=== PATIENT | male | born 1950 | race Two or more races ===

== ENCOUNTER 2023-11-08 09:33 | Day surgery (SDC) | payer MEDICARE, BC ==
[2023-11-07 09:29] LABS: BASOPHILS # (AUTO) 0.1 X10'3 (0-0.2); BASOPHILS % (AUTO) 0.8 % (0-1); EOSINOPHILS # (AUTO) 0.3 X10'3 (0-0.9); EOSINOPHILS % (AUTO) 3.6 % (0-6); HEMATOCRIT 47.5 % (42.0-52.0); HEMOGLOBIN 15.9 g/dl (14.0-17.9); LYMPHOCYTES # (AUTO) 1.3 X10'3 (1.1-4.8); LYMPHOCYTES % (AUTO) 16.6 % (21-51); MEAN CORPUSCULAR HEMOGLOBIN 29.6 PG (27.0-31.0); MEAN CORPUSCULAR HGB CONC 33.6 g/dL (33.0-36.5); MEAN CORPUSCULAR VOLUME 88.2 FL (78-98); MEAN PLATELET VOLUME 9.5 FL (7.4-10.4); MONOCYTES # (AUTO) 0.4 X10'3 (0-0.9); MONOCYTES % (AUTO) 5.6 % (2-12); NEUTROPHILS # (AUTO) 5.7 X10'3 (1.8-7.7); NEUTROPHILS % (AUTO) 73.4 % (42-75); PLATELET COUNT 175 X10'3 (140-440); RED BLOOD COUNT 5.38 X10'6 (4.70-6.10); RED CELL DISTRIBUTION WIDTH 14.5 % (11.5-14.5); WHITE BLOOD COUNT 7.8 X10'3 (4.5-11.0)
[2023-11-07 09:37] LABS: APTT 29 SECONDS (22-32); PROTHROMBIN TIME 10.6 SECONDS (9.0-12.0)
[2023-11-07 09:38] LABS: ALBUMIN 3.9 G/DL (3.4-5.0); ANION GAP 15 (8-16); BLOOD UREA NITROGEN 28 MG/DL (7-18); BUN/CREATININE RATIO 31.5 (10.0-20.0); CALCIUM 9.4 MG/DL (8.5-10.1); CHLORIDE 102 MMOL/L (99-107); CHOL/HDL RATIO 1.7 (0.00-4.99); CHOLESTEROL 72 MG/DL (0-200); CREATININE 0.89 MG/DL (0.60-1.10); GLUCOSE 166 MG/DL (70-104); HDL CHOLESTEROL 43 MG/DL (35-60); LDL CHOLESTEROL 17 MG/DL (50-100); POTASSIUM 4.1 MMOL/L (3.5-5.1); SODIUM 144 MMOL/L (135-145); TOTAL CARBON DIOXIDE 26.6 MMOL/L (24-32); TRIGLYCERIDES 144 MG/DL (20-135); eGFR 84 ML/MIN
[~2023-11-08] VITALS: Ht 175.3 cm; Wt 94.2 kg
[2023-11-08] VITALS (10 sets, daily range): BP systolic 100–127; BP diastolic 50–76; PULSE 64–68; RESP 12–16; TEMP 98.1; O2SAT 93–97
[~2023-11-08 09:33] MED LIST: AMLO10TA13 PO; EMPA25TA PO; EVOL140P3 SQ; FURO20TA4 PO; GLIM4TAB7 PO; ICOS1CAP PO; LOSA1TAB39 PO; METF-438 PO
[2023-11-08] MEDS ORDERED: CARV25TA PO (10:05)
[2023-11-08] MEDS ORDERED: PRED20TA PO (10:05)
[2023-11-08] MEDS ORDERED: INSU100I31 SQ (10:07)
[2023-11-08] MEDS ORDERED: ASPI-1265 PO (10:09)
[2023-11-08] MEDS ORDERED: ATOR-2 PO (10:10)
[2023-11-08] MEDS ORDERED: verapamil 2.5 mg/ml inj IV ONE (11:47)
[2023-11-08] MEDS ORDERED: LIDOcaine 1% (10mg/ml) 2ml vial ONE ×2 (11:47→12:20)
[2023-11-08] MEDS ORDERED: heparin 1,000unit/ml 10ml vial 10 ML ONE (11:47)
[2023-11-08] MEDS ORDERED: iohexol 350MG/ML 100ml bottle IV ONE (11:48)
[2023-11-08] MEDS ORDERED: nitroGLYCERIN 500mcg/5mL D5W 5 ML IV ONE (11:49)
[2023-11-08] MEDS ORDERED: midazolam 1 mg/ML 2ml injection ONE (11:50)
[2023-11-08] MEDS ORDERED: fentaNYL/PF 50MCG/1 ML 2ML syringe ONE (11:50)
[2023-11-08] MEDS: LORazepam 0.5 MG tablet PO PRN (12:06)
[2023-11-08] MEDS: diphenhydrAMINE 25mg capsule PO PRN (12:06)
[2023-11-08] MEDS: normal saline 1,000 ML IV SCH (12:06)
[2023-11-08] MEDS ORDERED: HYDROcodone/acetaminophen 10/325mg tab PO PRN (13:50)
[2023-11-08] MEDS ORDERED: HYDROcodone/acetaminophen 5mg/325mg tablet PO PRN (13:50)
[2023-11-09 06:30] LABS: ISTAT HGB MIX 13.9 g/dl (14.0-17.9); ISTAT Hct MIX 41 %PCV (42-52); ISTAT O2 SATURATION MIX VENOUS 92 % (60-80); ISTAT SOURCE BLNK
[2023-11-09 06:30] LABS: ISTAT HGB MIX 14.3 g/dl (14.0-17.9); ISTAT Hct MIX 42 %PCV (42-52); ISTAT O2 SATURATION MIX VENOUS 61 % (60-80); ISTAT SOURCE VEN
== END 2023-11-08 15:30 | disposition home or self-care (01) ==
LOC: SSTAY O 09:33
PROVIDERS: ATTEND Student in an Organized Health Care Education/Training Program
DX: I35.0 Nonrheumatic aortic (valve) stenosis (principal); I10 Essential (primary) hypertension; E11.9 Type 2 diabetes mellitus without complications; E78.00 Pure hypercholesterolemia, unspecified; Z79.82 Long term (current) use of aspirin; Z79.84 Long term (current) use of oral hypoglycemic drugs; Z79.899 Other long term (current) drug therapy; Z88.0 Allergy status to penicillin; Z91.041 Radiographic dye allergy status
CPT/HCPCS: 36415; 80048; 80061; 85025; 85610; 85730; 93005; 93460; 99152; A6258; A6402; C1751; C1894; J1644; J2001; J2250; J3010; J3490; J7030; Q0163; Q9967; Z7610; 82803; 85014; 99153; A6449

== ENCOUNTER 2023-11-30 11:59 | Outpatient (CLI) | payer MEDICARE, BC ==
[~2023-11-30 11:59] MED LIST changes: +ASPI-1265 PO; +ATOR-2 PO; +CARV25TA PO; +INSU100I31 SQ; +IODIXANOL 320 MG/ML INFUS..BTL 100ML IV ONE; +PRED20TA PO
[2023-11-30 12:41] LABS: BASOPHILS # (AUTO) 0.1 X10'3 (0-0.2); BASOPHILS % (AUTO) 0.6 % (0-1); EOSINOPHILS % (AUTO) 0.4 % (0-6); HEMATOCRIT 45.9 % (42.0-52.0); HEMOGLOBIN 15.7 g/dl (14.0-17.9); LYMPHOCYTES # (AUTO) 0.7 X10'3 (1.1-4.8); LYMPHOCYTES % (AUTO) 8.7 % (21-51); MEAN CORPUSCULAR HEMOGLOBIN 29.7 PG (27.0-31.0); MEAN CORPUSCULAR HGB CONC 34.3 g/dL (33.0-36.5); MEAN CORPUSCULAR VOLUME 86.7 FL (78-98); MEAN PLATELET VOLUME 9.1 FL (7.4-10.4); MONOCYTES # (AUTO) 0.1 X10'3 (0-0.9); MONOCYTES % (AUTO) 1.7 % (2-12); NEUTROPHILS # (AUTO) 7.4 X10'3 (1.8-7.7); NEUTROPHILS % (AUTO) 88.6 % (42-75); PLATELET COUNT 162 X10'3 (140-440); RED BLOOD COUNT 5.29 X10'6 (4.70-6.10); RED CELL DISTRIBUTION WIDTH 14.4 % (11.5-14.5); WHITE BLOOD COUNT 8.4 X10'3 (4.5-11.0)
[2023-11-30 12:47] LABS: APTT 27 SECONDS (22-32); PROTHROMBIN TIME 10.4 SECONDS (9.0-12.0)
[2023-11-30 12:51] LABS: ALANINE AMINOTRANSFERASE 31 U/L (12-78); ALBUMIN 3.9 G/DL (3.4-5.0); ALKALINE PHOSPHATASE 96 IU/L (46-116); ANION GAP 8 (8-16); ASPARTATE AMINO TRANSFERASE 14 U/L (10-37); BILIRUBIN,TOTAL 0.7 MG/DL (0.1-1.0); BLOOD UREA NITROGEN 26 MG/DL (7-18); BUN/CREATININE RATIO 27.4 (10.0-20.0); CALCIUM 9.3 MG/DL (8.5-10.1); CHLORIDE 102 MMOL/L (99-107); CREATININE 0.95 MG/DL (0.60-1.10); GLUCOSE 245 MG/DL (70-104); POTASSIUM 4.2 MMOL/L (3.5-5.1); SODIUM 138 MMOL/L (135-145); TOTAL CARBON DIOXIDE 27.8 MMOL/L (24-32); TOTAL PROTEIN 7.8 G/DL (6.4-8.2); eGFR 78 ML/MIN
== END 2023-11-30 23:59 | disposition home or self-care (01) ==
LOC: RAD 11:59
PROVIDERS: ATTEND Internal Medicine Cardiovascular Disease
DX: K44.9 Diaphragmatic hernia without obstruction or gangrene (principal); K57.90 Diverticulosis of intestine, part unspecified, without perforation or abscess without bleeding; I35.0 Nonrheumatic aortic (valve) stenosis; I65.29 Occlusion and stenosis of unspecified carotid artery; M89.8X8 Other specified disorders of bone, other site; N32.89 Other specified disorders of bladder; R09.89 Other specified symptoms and signs involving the circulatory and respiratory systems; R06.02 Shortness of breath
CPT/HCPCS: 36415; 71046; 71275; 74174; 75572; 80053; 85025; 85610; 85730; Q9967

== ENCOUNTER 2024-04-05 06:21 | Inpatient (IN) | payer MEDICARE, BC ==
[2024-03-27 10:54] LABS: BILIRUBIN,URINE NEGATIVE (Neg); CLARITY,URINE CLEAR (Clear); COLOR,URINE YELLOW (Yellow); GLUCOSE, URINE >=1000 mg/dl (Neg); KETONES,URINE NEGATIVE (Neg); LEUKOCYTE ESTERASE ,URINE NEGATIVE (Neg); NITRITES, URINE NEGATIVE (Neg); OCCULT BLOOD,URINE NEGATIVE (Neg); PROTEIN,URINE TRACE mg/dl (Neg); UROBILINOGEN,URINE 0.2 E.U/dL (0.2-1.0)
[2024-03-27 10:58] LABS: BASOPHILS # (AUTO) 0.1 X10'3 (0-0.2); BASOPHILS % (AUTO) 1.3 % (0-1); EOSINOPHILS # (AUTO) 0.3 X10'3 (0-0.9); EOSINOPHILS % (AUTO) 4.3 % (0-6); LYMPHOCYTES # (AUTO) 1.5 X10'3 (1.1-4.8); LYMPHOCYTES % (AUTO) 21.3 % (21-51); MEAN CORPUSCULAR HEMOGLOBIN 29.7 PG (27.0-31.0); MEAN CORPUSCULAR HGB CONC 33.5 g/dL (33.0-36.5); MEAN CORPUSCULAR VOLUME 88.6 FL (78-98); MEAN PLATELET VOLUME 9.8 FL (7.4-10.4); MONOCYTES # (AUTO) 0.6 X10'3 (0-0.9); MONOCYTES % (AUTO) 8.5 % (2-12); NEUTROPHILS # (AUTO) 4.5 X10'3 (1.8-7.7); NEUTROPHILS % (AUTO) 64.6 % (42-75); PRE OP HEMATOCRIT 49.1 % (42.0-52.0); PRE OP HEMOGLOBIN 16.4 g/dL (14.0-17.9); PRE OP PLATELET COUNT 187 X10'3 (140-440); RED BLOOD COUNT 5.54 X10'6 (4.70-6.10); RED CELL DISTRIBUTION WIDTH 14.9 % (11.5-14.5); UA COLLECTION TYPE CLN CATCH MIDSTREAM
[2024-03-27 10:59] LABS: BACTERIA,URINE NONE SEEN /HPF (Neg); RBC,URINE 0-2 /HPF (0-2); SQUAMOUS EPITHELIAL CELL,UR FEW /LPF (FEW); WBC,URINE 0-4 /HPF (0-4)
[2024-03-27 11:05] LABS: HEMOGLOBIN A1C 7.8 % (4.5-6.2)
[2024-03-27 11:16] LABS: PRE OP PROTIME 10.3 SECONDS (9.0-12.0)
[2024-03-27 11:24] LABS: ALKALINE PHOSPHATASE 69 IU/L (46-116); BLOOD UREA NITROGEN 22 MG/DL (7-18); BUN/CREATININE RATIO 24.7 (10.0-20.0); CALCIUM 9.8 MG/DL (8.5-10.1); CREATININE 0.89 MG/DL (0.60-1.10); PRE OP ALT 29 U/L (30-65); PRE OP AST 18 U/L (10-37); PRE OP GLUCOSE 95 MG/DL (70-104); PRE OP SODIUM 142 MMOL/L (135-145); PRO BRAIN NATRIURETIC PEPTIDE 513 PG/ML (0-125); TOTAL CARBON DIOXIDE 28.3 MMOL/L (24-32); eGFR 84 ML/MIN
[2024-03-27 11:26] LABS: CHLORIDE 103 MMOL/L (99-107); PRE OP ANION GAP 11 (8-16)
[2024-04-05] VITALS (25 sets, daily range): BP systolic 122–168; BP diastolic 62–88; PULSE 60–71; RESP 10–20; TEMP 97.4–98.2; O2SAT 91–97
[~2024-04-05] VITALS: Ht 170.2 cm; Wt 98.7 kg
[~2024-04-05 06:21] MED LIST changes: -ICOS1CAP PO; +INSU100C10 SQ; -INSU100I31 SQ; -IODIXANOL 320 MG/ML INFUS..BTL 100ML IV ONE; +KRILL OIL PO; +MULT-1085 PO; -PRED20TA PO; +UBID300C3 PO; +nitroPRUSSIDE (NIPRIDE) (200MCG/ML) 100ML Drip IV SCH; +ondansetron/PF 4mg/2ml inj IV PRN; +phenylephrine inj 50 MG in normal saline 250ml IV solN IV SCH
[2024-04-05] MEDS ORDERED: protamine sulfate 10mg/ml inj. ONE (07:13)
[2024-04-05] MEDS ORDERED: LIDOcaine 1% (10mg/ml) 2ml vial ONE ×2 (07:18→07:48)
[2024-04-05] MEDS: famotidine 20mg tablet PO ONE (07:31)
[2024-04-05] MEDS: ringers solution, lacted 1,000 ML IV SCH ×2 (07:37→21:47)
[2024-04-05] MEDS: VANCOMYCIN 1,500MG inj. 1,500 MG in normal saline 500ml IV soln 300 ML IV ONE (07:37)
[2024-04-05] MEDS: aspirin 325mg tablet PO ONE (07:49)
[2024-04-05] MEDS ORDERED: morphine 2 MG/ML inj. syringe IV PRN (07:50)
[2024-04-05] MEDS ORDERED: ondansetron/PF 4mg/2ml inj IV PRN ×2 (07:50→09:35)
[2024-04-05] MEDS ORDERED: meperidine/PF 25mg/ml syringe IV PRN ×3 (07:50)
[2024-04-05] MEDS ORDERED: morphine 4 MG/ML inj SYRINge IV PRN (07:50)
[2024-04-05] MEDS ORDERED: labetalol 20mg/4ml (5mg/ml) syringe IV PRN ×2 (07:50→09:35)
[2024-04-05] MEDS ORDERED: proCHLORperazine 10 MG/2 ml inj IV PRN ×2 (07:50→09:35)
[2024-04-05] MEDS ORDERED: heparin 1,000 UNITS/NS 500ml 1,500 ML ONE (08:14)
[2024-04-05] MEDS ORDERED: iohexol 350MG/ML 100ml bottle IV ONE (08:14)
[2024-04-05] MEDS ORDERED: sevoflurane 250ml liquid IH ONE (08:22)
[2024-04-05] MEDS ORDERED: fentaNYL/PF 50MCG/1 ML 2ML syringe ONE (08:28)
[2024-04-05] MEDS ORDERED: midazolam 1 mg/ML 2ml injection ONE (08:28)
[2024-04-05] MEDS ORDERED: propofol inj 20 ML IV ONE (08:30)
[2024-04-05] MEDS ORDERED: heparin 1,000unit/ml 10ml vial 10 ML ONE (08:38)
[2024-04-05] MEDS ORDERED: ALPRAZolam 0.25mg tablet PO PRN (09:35)
[2024-04-05] MEDS ORDERED: potassium CL 10mEq/100ml bag 100 ML IV PRN (09:35)
[2024-04-05] MEDS ORDERED: HYDROcodone/acetaminophen 5mg/325mg tablet PO PRN (09:35)
[2024-04-05] MEDS ORDERED: glucagon, human recombinant 1mg kit SUBCUT PRN (09:35)
[2024-04-05] MEDS ORDERED: dextrose 50%-water 50ml dispensing syringe IV PRN ×2 (09:35)
[2024-04-05] MEDS ORDERED: potassium Cl 20 mEq SR tablet PO PRN (09:35)
[2024-04-05] MEDS ORDERED: magnesium sulf-water 4G/100mL 100 ML IV PRN (09:35)
[2024-04-05] MEDS ORDERED: docusate sod 100mg capsule PO PRN (09:35)
[2024-04-05] MEDS ORDERED: potassium Cl 40MEQ/270ML bag 250 ML IV PRN (09:35)
[2024-04-05] MEDS ORDERED: diphenhydrAMINE 25mg capsule PO PRN (09:35)
[2024-04-05] MEDS ORDERED: DEXTROSE 15 GM of carb/4 tabs (each vial/BOTTLE has 4 tablets) PO PRN ×2 (09:35)
[2024-04-05] MEDS ORDERED: hydrALAZINE 20mg/ml inj. IV PRN (09:35)
[2024-04-05] MEDS ORDERED: magnesium sulf-water 2g/50mL 50 ML IV PRN (09:35)
[2024-04-05] MEDS ORDERED: potassium Cl 40MEQ/1/2NS 520ml 520 ML IV PRN (09:35)
[2024-04-05] MEDS ORDERED: acetaminophen 325mg tablet PO PRN (09:35)
[2024-04-05] MEDS ORDERED: potassium Cl 20mEq/100mL bag 100 ML IV PRN (09:35)
[2024-04-05] MEDS ORDERED: pantoprazole 40mg Tablet.DR PO PRN (09:35)
[2024-04-05] MEDS: normal saline 1000ml 1,000 ML IV SCH (11:06)
[2024-04-05] MEDS ORDERED: INSULIN LISPRO 100 UNIT/ML INSULN.PEN MULTI-DOSE SQ SCH (12:00)
[2024-04-05] MEDS: INSULIN LISPRO 100 UNIT/ML INSULN.PEN MULTI-DOSE SQ SCH (13:53)
[2024-04-05] MEDS ORDERED: sod chloride 0.9% 10ml flush syringe IV SCH (16:00)
[2024-04-05] MEDS ORDERED: ceFAZolin 1GM/D5W- ADD-VANTAGE 50 ML IV SCH (16:00)
[2024-04-05] MEDS: DOCUMENT DATE & TIME OF BETA-BLOCKER PO ONE (21:46)
[2024-04-05] MEDS: carVEDilol 12.5mg tablet PO SCH (22:03)
[2024-04-05] MEDS: atorvastatin 20mg tablet PO SCH (22:04)
[2024-04-05] MEDS: VANCOMYCIN 1GM 200ML H20 (PEG) 200 ML IV SCH (23:18)
[2024-04-06 02:00] VITALS: BP 138/68; PULSE 62; RESP 10; TEMP 97.4; O2SAT 94
[2024-04-06 06:00] VITALS: BP 155/73; PULSE 62; RESP 19; TEMP 97; O2SAT 96
[2024-04-06] MEDS: amLODIPine 5mg tablet PO SCH (07:41)
[2024-04-06] MEDS: HYDROchlorothiazide 25mg tablet PO SCH (07:41)
[2024-04-06] MEDS: losartan 50mg tablet PO SCH (07:41)
[2024-04-06] MEDS: aspirin 81mg tab.chew PO SCH (07:41)
[2024-04-06] MEDS: multivitamins, therapeutics tablet PO SCH (07:41)
[2024-04-06 07:42] LABS: BASOPHILS # (AUTO) 0.1 X10'3 (0-0.2); BASOPHILS % (AUTO) 0.7 % (0-1); EOSINOPHILS # (AUTO) 0.1 X10'3 (0-0.9); EOSINOPHILS % (AUTO) 1.6 % (0-6); HEMATOCRIT 40.9 % (42.0-52.0); HEMOGLOBIN 13.9 g/dl (14.0-17.9); LYMPHOCYTES # (AUTO) 1.3 X10'3 (1.1-4.8); LYMPHOCYTES % (AUTO) 15.6 % (21-51); MEAN CORPUSCULAR HEMOGLOBIN 29.8 PG (27.0-31.0); MEAN CORPUSCULAR VOLUME 87.5 FL (78-98); MONOCYTES # (AUTO) 0.9 X10'3 (0-0.9); MONOCYTES % (AUTO) 10.3 % (2-12); NEUTROPHILS % (AUTO) 71.8 % (42-75); PLATELET COUNT 124 X10'3 (140-440); RED BLOOD COUNT 4.67 X10'6 (4.70-6.10); RED CELL DISTRIBUTION WIDTH 14.9 % (11.5-14.5); WHITE BLOOD COUNT 8.3 X10'3 (4.5-11.0)
[2024-04-06 08:00] VITALS: RESP 19; O2SAT 96
[2024-04-06] MEDS ORDERED: non-formulary drug (Losartan/Hydrochlorothiazide (Losartan-Hctz 100-25 Mg Tab) 1 TAB) PO SCH (08:00)
[2024-04-06] MEDS ORDERED: [UNRECOGNIZED DRUG - OTHER] PO SCH (08:00)
[2024-04-06] MEDS ORDERED: aspirin 81mg tab.chew PO SCH (08:00)
[2024-04-06] MEDS ORDERED: non-formulary drug (Ubidecarenone (Co Q-10) 1 CAP) PO SCH (08:00)
[2024-04-06 08:17] LABS: ALANINE AMINOTRANSFERASE 19 U/L (12-78); ALBUMIN 3.4 G/DL (3.4-5.0); ALKALINE PHOSPHATASE 69 IU/L (46-116); ANION GAP 8 (8-16); ASPARTATE AMINO TRANSFERASE 19 U/L (10-37); BILIRUBIN,TOTAL 1.1 MG/DL (0.1-1.0); BLOOD UREA NITROGEN 21 MG/DL (7-18); BUN/CREATININE RATIO 25.3 (10.0-20.0); CALCIUM 8.5 MG/DL (8.5-10.1); CHLORIDE 105 MMOL/L (99-107); CREATININE 0.83 MG/DL (0.60-1.10); GLUCOSE 162 MG/DL (70-104); MAGNESIUM 1.9 MG/DL (1.5-2.4); POTASSIUM 3.9 MMOL/L (3.5-5.1); PRO BRAIN NATRIURETIC PEPTIDE 694 PG/ML (0-125); SODIUM 142 MMOL/L (135-145); TOTAL CARBON DIOXIDE 28.8 MMOL/L (24-32); TOTAL PROTEIN 6.9 G/DL (6.4-8.2); eCRCL 74 ML/MIN; eGFR > 90 ML/MIN
[2024-04-06 11:00] VITALS: BP 127/55; PULSE 65; RESP 15; TEMP 98.4; O2SAT 95
== END 2024-04-06 12:27 | disposition home or self-care (01) | DRG 266 ==
LOC: UNDOADMIN 06:21 → PAS IN 06:21 → PACU 11:31 → PCU 3S 19:00 → UNDODISIN 04-06 12:27
PROVIDERS: ADMIT Internal Medicine Cardiovascular Disease; ATTEND Internal Medicine Cardiovascular Disease
PROC: 02RF38Z Replacement of Aortic Valve with Zooplastic Tissue, Percutaneous Approach (ICD-10-PCS; 2024-04-05)
PROC: B41D1ZZ Fluoroscopy of Aorta and Bilateral Lower Extremity Arteries using Low Osmolar Contrast (ICD-10-PCS; 2024-04-05)
PROC: 03HY32Z Insertion of Monitoring Device into Upper Artery, Percutaneous Approach (ICD-10-PCS; 2024-04-05)
PROC: 027F3ZZ Dilation of Aortic Valve, Percutaneous Approach (ICD-10-PCS; principal; 2024-04-05 08:22)
DX: I35.0 Nonrheumatic aortic (valve) stenosis (principal); Z00.6 Encounter for examination for normal comparison and control in clinical research program; I50.33 Acute on chronic diastolic (congestive) heart failure; I11.0 Hypertensive heart disease with heart failure; E11.9 Type 2 diabetes mellitus without complications; E78.5 Hyperlipidemia, unspecified; Z88.0 Allergy status to penicillin; Z91.041 Radiographic dye allergy status
CPT/HCPCS: 33361; 36415; 71045; 71046; 76937; 80053; 81001; 82948; 83036; 83735; 83880; 85025; 85347; 85610; 85730; 86885; 86900; 86901; 86920; 87081; 93005; 93308; A4615; A4618; A6258; A6449; C1725; C1756; C1760; C1769; C1894; G0378; J1644; J1815; J2003; J2250; J2371; J2704; J2720; J3010; J3370; J3372; J3490; J7030; J7040; J7050; J7120; Q9967

== ENCOUNTER 2024-09-19 01:54 | Emergency (ER) | payer MEDICARE, BC ==
[~2024-09-19] VITALS: Ht 177.8 cm; Wt 100.0 kg
[~2024-09-19 01:54] MED LIST changes: -nitroPRUSSIDE (NIPRIDE) (200MCG/ML) 100ML Drip IV SCH; -ondansetron/PF 4mg/2ml inj IV PRN; -phenylephrine inj 50 MG in normal saline 250ml IV solN IV SCH
--- NOTE | 2024-09-19 02:20 | Physician Documentation ---
History of Present Illness ~ Chief Complaint: ALOC Stated Complaint: ALOC Time Seen by MD: 02:11 Primary Medical Doctor: Dr. Dos Santos HPI Patient presents to the emergency room brought in by EMS for evaluation of shortness of breath. Per EMS reports that she found him sitting on the toilet holding a bucket of vomit that has repair colored. It was reported that he has been on the toilet for several hours. When EMS arrived he was still on the toilet. Patient found to be hypoxic in his not helpful with history. Unknown when he was last himself. Patient did just start Ozempic yesterday. Medication Reconciliation Allergies: Coded Allergies: Penicillins (Verified Allergy, Unknown, RASH, 04/04/24) iodine (Verified Allergy, Unknown, RASH, 04/04/24) Scheduled Amlodipine Besylate (Amlodipine Besylate), 1 TAB PO DAILY, (Reported) Aspirin (Aspirin), 1 TAB PO DAILY, (Reported) Atorvastatin Calcium (Atorvastatin Calcium), 1 TAB PO QPM, (Reported) Carvedilol (Coreg), 1 TAB PO Q12H, (Reported) Empagliflozin (Jardiance), 1 TAB PO DAILY, (Reported) Evolocumab (Repatha Sureclick), 1 SQ Q2W, (Reported) Furosemide (Furosemide), 1 TAB PO PRN, (Reported) Glimepiride* (Amaryl*), 1 TAB PO BID, (Reported) Insulin Lispro (Humalog), 46 UNITS SQ QAM, (Reported) Insulin Lispro (Humalog), 36 UNITS SQ QPM, (Reported) Losartan/Hydrochlorothiazide (Losartan-Hctz 100-25 Mg Tab), 1 TAB PO DAILY, (Reported) Metformin HCl (Metformin HCl), 1 TAB PO BID, (Reported) Multivitamin (Multi Vitamin Daily), 1 TAB PO DAILY, (Reported) Ubidecarenone (Co Q-10), 1 CAP PO DAILY, (Reported) [Florencio Krill Oil], 500 MG PO DAILY, (Reported) Review of Systems ROS All review of systems negative except as per HPI Physical Exam Vital Signs: Temperature: 98.0, Source: Axillary, Heart Rate: 95, Respiratory Rate: 37, BP: 172/82, Pulse Oximetry: 92, Weight: 100.000 Oxygen Flow Rate: 4.0 Physical Exam General: Patient is sleeping, easily arousable to voice but does not really answer questions. Diaphoretic, ill-appearing Head: Normocephalic and atraumatic. Eyes: Conjunctival normal. EOMI. PERRL. ENT: Mucous membranes moist. Neck: Supple, trachea is midline. Chest: Clear to auscultation bilaterally without rales, rhonchi, or wheezes. There is no accessory muscle use or retractions. Tachypneic Cardiac: RRR without murmurs, gallops, or rubs. Abd: Soft, nondistended, nontender, with normoactive bowel sounds. No guarding, rebound, or rigidity. Progress Progress Note Received call from radiologist regarding intraparenchymal hemorrhage. Immediate call over to Neurosurgery at [facility]. Patient's blood pressure 149 systolic therefore labetalol ordered with goal of getting blood pressure below 140. Results/Orders Results/Orders Orders - KAREEM MARTE MD Chest,Single View (09/19/24 02:32) Monitor (09/19/24 02:08) Saline Lock (09/19/24 02:08) Oxygen (09/19/24 02:08) Electrocardiogram (09/19/24 02:08) Culture Blood (09/19/24 02:08) Monitor (09/19/24 02:08) Covid19 Binax Poc Result Entry (09/19/24 02:20) Ct Head (09/19/24 03:50) Ct Chest Abdomen Pelvis (09/19/24 03:40) Completed Orders - KAREEM MARTE MD Chest,Single View (09/19/24 02:32) Cbc/Diff (09/19/24 02:08) PBNP (09/19/24 02:08) Electrocardiogram (09/19/24 02:08) CMP (09/19/24 02:08) Hs Troponin I W Calculations (09/19/24 02:08) Procalcitonin (09/19/24 02:08) Lacticsepsis (09/19/24 02:08) Pantoprazole 40mg Iv (Protonix 40mg Iv) (09/19/24 02:25) Prochlorperazine Inj (Compazine Inj) (09/19/24 02:25) Normal Saline 1000ml (Sodium Chloride 10 (09/19/24 02:55) Ceftriaxone 2gm/D5w 50ml Bag (Rocephin 2 (09/19/24 02:55) Ct Head (09/19/24 03:50) Vancomycin Inj (Vancomycin Inj) (09/19/24 03:15) Azithromycin/Ns 500mg/250ml (Zithromax/N (09/19/24 03:15) Iohexol 350mg/Ml 100ml (Omnipaque 350mg/ (09/19/24 03:25) Lipase (09/19/24 02:11) Lactic,2hr (09/19/24 03:49) Ct Chest Abdomen Pelvis (09/19/24 03:40) Labetalol Inj. (Trandate 20 Mg/4ml Syrin (09/19/24 04:25) Vital Signs 09/19/24 09/19/24 09/19/24 09/19/24 01:59 02:15 03:29 03:42 Temp 98.0 98.0 98.0 Pulse 98 95 111 Resp 16 37 36 35 B/P (MAP) 171/81 172/82 (112) 163/76 (105) Pulse Ox 94 92 92 O2 Flow Rate 4.0 4.0 4.0 Laboratory Tests Test 09/19/24 02:11 09/19/24 02:35 09/19/24 02:40 09/19/24 04:24 White Blood Count 14.4 H Red Blood Count 5.82 Hemoglobin 17.5 Hematocrit 51.7 Mean Corpuscular Volume 88.7 Mean Corpuscular Hemoglobin 30.1 Mean Corpuscular Hemoglobin Concent 33.9 Red Cell Distribution Width 14.4 Platelet Count 133 L Mean Platelet Volume 9.8 Neutrophils (%) (Auto) 96.4 H Lymphocytes (%) (Auto) 1.2 L Monocytes (%) (Auto) 2.2 Eosinophils (%) (Auto) 0 Basophils (%) (Auto) 0.2 Neutrophils # (Auto) 13.9 H Lymphocytes # (Auto) 0.2 L Monocytes # (Auto) 0.3 Eosinophils # (Auto) 0.0 Basophils # (Auto) 0.0 CBC Comment Sodium Level 133 L Potassium Level 4.5 Chloride Level 92 L Carbon Dioxide Level 21.3 L Anion Gap 20 H Blood Urea Nitrogen 26 H Creatinine 1.61 H Estimated GFR/1.73 m2 42 BUN/Creatinine Ratio 16.1 Glucose Level 296 H Lactic Acid Level 6.1 *H 5.2 *H Calcium Level 9.3 Total Bilirubin 2.2 H Aspartate Amino Transf (AST/SGOT) 42 H Alanine Aminotransferase (ALT/SGPT) 28 Alkaline Phosphatase 90 Troponin I High Sensitivity 843 *H Pro-B-Type Natriuretic Peptide 8400 H Total Protein 7.7 Albumin 4.0 Globulin 3.7 Albumin/Globulin Ratio 1.1 Lipase 16 Procalcitonin 22.65 H Chemistry Comments Glucometer 281 H SARS-CoV-2 Antigen (Rapid) Negative Microbiology Date/Time Source Procedure Growth Status 09/19/24 02:18 Blood Hand Right Blood Culture - Preliminary Positive Culture Resulted EKG/XRAY/CT/US/VASC/MRI EKG : Additional Comment EKG interpreted by myself shows time of 0206, rate of 96, sinus rhythm, normal axis, no ST changes Chest X-Ray : Additional Comments Exam: CHEST,SINGLE VIEW CHEST RADIOGRAPH Indication: CP Technique: Single frontal view of the chest was obtained Comparison: DI CHEST,SINGLE VIEW on DOS: 04/06/24 IMPRESSION: Heart appears stable in size. There is a TAVR device. Moderate pulmonary vascular congestion. No sizable effusion or pneumothorax. No focal airspace opacity. : Impression Exam: CT HEAD Addendum: 1 ADDENDUM # 1 Critical result: Intracranial hemorrhage Findings discussed with Dr. Marte on 09/19/2024 at 6:16 a.m. [employer], with acknowledged receipt and understanding of the findings. ORIGINAL REPORT EXAM: CT CT HEAD INDICATION: ams TECHNIQUE: CT of the head without intravenous contrast. Coronal and sagittal reformatted images are submitted. Radiation Dose : 1. Head: CT Dose: CTDI volume is 69.8 mGy. Dose-length product is 1452.5 mGy*cm The dose indicators for CT are the volume Computed Tomography (CT) Dose Index (CTDIvol) and the Dose Length Product (DLP), and are measured in units of mGy and mGy-cm, respectively. These indicators are not patient dose, but values generated from the CT scanner acquisition factors. The report includes radiation exposure data for exposures received during this examination. All CT scans at this medical facility are performed using dose modulation techniques as appropriate to a performed exam including the following: Automated exposure control was utilized; adjustment of the MA and/or KV according to patient size; and use of iterative reconstruction technique. COMPARISON: None FINDINGS: There is hyperdensity in the right occipital lobe compatible with acute intracranial hemorrhage measuring 1.9 x 1.3 x 1.7 cm (volume 2.1 cc). There is no mass effect or midline shift. No hydrocephalus. The ventricles, sulci and cisterns are age appropriate. The moffett-white differentiation is intact. There is opacification of the left maxillary sinus. Mastoid air cells are clear. No depressed calvarial fracture. The surrounding soft tissues are unremarkable. IMPRESSION: 1. Right occipital lobe acute intracranial hemorrhage. Dictated: SILVIO KAMINSKI MD Dictated Date: 09/19/24 Ditated Time: 415 Electronically signed by: SILVIO KAMINSKI MD 09/19/24415 EXAM: CT CT HEAD INDICATION: ams TECHNIQUE: CT of the head without intravenous contrast. Coronal and sagittal reformatted images are submitted. Radiation Dose : 1. Head: CT Dose: CTDI volume is 69.8 mGy. Dose-length product is 1452.5 mGy*cm The dose indicators for CT are the volume Computed Tomography (CT) Dose Index (CTDIvol) and the Dose Length Product (DLP), and are measured in units of mGy and mGy-cm, respectively. These indicators are not patient dose, but values generated from the CT scanner acquisition factors. The report includes radiation exposure data for exposures received during this examination. All CT scans at this medical facility are performed using dose modulation techniques as appropriate to a performed exam including the following: Automated exposure control was utilized; adjustment of the MA and/or KV according to patient size; and use of iterative reconstruction technique. COMPARISON: None FINDINGS: There is hyperdensity in the right occipital lobe compatible with acute intracranial hemorrhage measuring 1.9 x 1.3 x 1.7 cm (volume 2.1 cc). There is no mass effect or midline shift. No hydrocephalus. The ventricles, sulci and cisterns are age appropriate. The moffett-white differentiation is intact. There is opacification of the left maxillary sinus. Mastoid air cells are clear. No depressed calvarial fracture. The surrounding soft tissues are unremarkable. IMPRESSION: 1. Right occipital lobe acute intracranial hemorrhage. Exam: CT CHEST ABDOMEN PELVIS Exam: CT CT CHEST ABDOMEN PELVIS History: sob, abd pain, PATIENT ALLERGIC TO IODINE Comparison Study: None Technique: Multidetector CT of the chest, abdomen and pelvis was performed from lower neck to pubic symphysis without intravenous contrast. Coronal and sagittal multiplanar reformats were performed by the technologist on a separate workstation. Radiation Dose Information: CT Dose: CTDI volume is 30.3 mGy. Dose-length product is 1771.7 mGy*cm Findings: Limited evaluation without intravenous contrast. Lower neck: Unremarkable thyroid. Lungs: Bilateral lower lobe atelectasis. 5 mm pulmonary nodule in the anterior right upper lobe. Pleura: No pneumothorax or pleural effusion. Central airways: Patent. Heart/Vascular Structures: Heart is enlarged. No pericardial effusion. Aortic valve replacement. Coronary artery calcifications. No thoracic aortic aneurysm. Normal caliber main pulmonary artery. Lymph Nodes: No adenopathy Liver: The liver is normal in size. No focal lesions. Gallbladder and Biliary Tree: The gallbladder is unremarkable. No biliary ductal dilatation. Spleen: Unremarkable Pancreas: The pancreas is normal in appearance without focal lesions or peripancreatic enhancement. No pancreatic ductal dilatation. Adrenal Glands: Unremarkable Kidneys: Kidneys demonstrate no intrarenal calculi. There is asymmetric left perinephric fat stranding and the left kidney is slightly larger than the right. Bladder: Unremarkable Bowel: The stomach is grossly normal in appearance. Small bowel is normal in caliber. Sigmoid diverticulosis without acute diverticulitis. The appendix is visualized and is normal. Peritoneal cavity: No pneumoperitoneum. No ascites. Lymphadenopathy: No mesenteric, retroperitoneal or periportal lymphadenopathy. Abdominal Wall and Mesentery: Unremarkable. Vasculature: The visualized abdominal aorta is normal in size and caliber. There are atherosclerotic calcifications in the aorta. Pelvic Organs: Unremarkable Musculoskeletal: No aggressive focal bony lesions, acute fractures or dislocation. IMPRESSION: 1. No acute traumatic injury in the chest. 2. 5 mm right upper lobe pulmonary nodule. Follow-up according to Fleischner society guidelines recommended. 3. Slight enlargement of the left kidney with left perinephric fat stranding. No intrarenal stones. Correlation with urinalysis is recommended. All CT scans at this medical facility are performed using dose modulation techniques as appropriate to a performed exam including the following: Automated exposure control was utilized; adjustment of the MA and/or KV according to patient size; and use of iterative reconstruction technique. Medical Decision Making Findings Patient presents to the emergency room with vomiting abdominal pain hypoxia and altered mental status. Differentials were vas including but not limited to intracranial bleed, pneumonia, small-bowel obstruction, GI bleed therefore emergent labs and imaging indicated. CT scan shows intraparenchymal bleed. Patient's blood pressure elevated and one dose of labetalol administered with a goal of 140 systolic. Immediate consultation with [facility] regarding had bleed and they have accepted transfer. Given patient's significant elevation of white blood cell as well as lactic acidosis and procalcitonin that has concern for possible infectious process therefore empirical antibiotics administered. We are continuing to wait for read of CT chest abdomen and pelvis. Elevation of troponins and it was unclear if this is related to ACS versus intracranial bleed. He is not on blood thinners. Patient does have an elevated BNP along with chest x-ray findings which could represent congestion. EKG reasurring for no ST elevation. GCS of 10 Departure Disposition: 51 HOSPICE/MEDICAL FACILITY Impression: Primary Impression: Intracranial bleed Additional Impressions: Altered mental status Suspected sepsis Condition: Critical Referrals: NO PRIMARY CARE PROVIDER (PCP) Critical Care Note Total Time (mins): 88 Critical Care Note The very real possibility of a deterioration of this patient's condition required the highest level of my preparedness for sudden, emergent intervention. I provided critical care services, which included medication orders, frequent reevaluations of the patient's condition and response to treatment, ordering and reviewing test results, and discussing the case with various consultants. Excludes time spent performing separately billable procedures. The critical care time associated with the care of the patient was 88 minutes not counting procedures Signature Scribe Signature: No scribe Attestation: The note accurately reflects work and decisions made by me.Kareem Marte MD 09/19/24 05:28 KAREEM MARTE MD September 19, 2024 02:20
[2024-09-19 02:28] LABS: EOSINOPHILS % (AUTO) 0 % (0-6); HEMATOCRIT 51.7 % (42.0-52.0); LYMPHOCYTES # (AUTO) 0.2 X10'3 (1.1-4.8); MONOCYTES # (AUTO) 0.3 X10'3 (0-0.9); WHITE BLOOD COUNT 14.4 X10'3 (4.5-11.0)
[2024-09-19] MEDS: proCHLORperazine 10 MG/2 ml inj IV ONE (02:28)
[2024-09-19] MEDS: pantoprazole 40 MG vial IV ONE (02:29)
[2024-09-19 02:30] LABS: BASOPHILS % (AUTO) 0.2 % (0-1); HEMOGLOBIN 17.5 g/dl (14.0-17.9); LYMPHOCYTES % (AUTO) 1.2 % (21-51); MEAN CORPUSCULAR HEMOGLOBIN 30.1 PG (27.0-31.0); MEAN CORPUSCULAR HGB CONC 33.9 g/dL (33.0-36.5); MEAN CORPUSCULAR VOLUME 88.7 FL (78-98); MEAN PLATELET VOLUME 9.8 FL (7.4-10.4); MONOCYTES % (AUTO) 2.2 % (2-12); NEUTROPHILS # (AUTO) 13.9 X10'3 (1.8-7.7); NEUTROPHILS % (AUTO) 96.4 % (42-75); PLATELET COUNT 133 X10'3 (140-440); RED BLOOD COUNT 5.82 X10'6 (4.70-6.10); RED CELL DISTRIBUTION WIDTH 14.4 % (11.5-14.5)
[2024-09-19 02:41] LABS: ALANINE AMINOTRANSFERASE 28 U/L (12-78); ALBUMIN/GLOBULIN RATIO 1.1 (1.1-1.5); ALKALINE PHOSPHATASE 90 IU/L (46-116); ANION GAP 20 (8-16); ASPARTATE AMINO TRANSFERASE 42 U/L (10-37); BILIRUBIN,TOTAL 2.2 MG/DL (0.1-1.0); BLOOD UREA NITROGEN 26 MG/DL (7-18); BUN/CREATININE RATIO 16.1 (10.0-20.0); CALCIUM 9.3 MG/DL (8.5-10.1); CHLORIDE 92 MMOL/L (99-107); CREATININE 1.61 MG/DL (0.60-1.10); GLUCOSE 296 MG/DL (70-104); POTASSIUM 4.5 MMOL/L (3.5-5.1); SODIUM 133 MMOL/L (135-145); TOTAL CARBON DIOXIDE 21.3 MMOL/L (24-32); TOTAL PROTEIN 7.7 G/DL (6.4-8.2); eCRCL 42 ML/MIN; eGFR 42 ML/MIN
[2024-09-19 02:50] LABS: PRO BRAIN NATRIURETIC PEPTIDE 8400 PG/ML (0-125)
[2024-09-19] MEDS: CefTRIAXone 2gm/D5W 50ml BAG 50 ML IV ONE (03:11)
[2024-09-19] MEDS: normal saline 1000ML IV soln IVB ONE (03:11)
[2024-09-19] MEDS: vancomycin inj 1,000 MG in normal saline 250ml IV soln 250 ML IV ONE (03:15)
[2024-09-19] MEDS ORDERED: iohexol 350MG/ML 100ml bottle IV ONE (03:25)
[2024-09-19 03:29] VITALS: BP 163/76; PULSE 111; TEMP 98; O2SAT 92
--- NOTE | 2024-09-19 03:37 | RADIOLOGY REPORT ---
CHEST RADIOGRAPH Indication: CP Technique: Single frontal view of the chest was obtained Comparison: DI CHEST,SINGLE VIEW on DOS: 04/06/24 IMPRESSION: Heart appears stable in size. There is a TAVR device. Moderate pulmonary vascular congestion. No siz able effusion or pneumothorax. No focal airspace opacity.
[2024-09-19 03:42] VITALS: RESP 35
[2024-09-19 03:42] LABS: LIPASE 16 U/L (16-77)
[2024-09-19] MEDS: azithromycin/NS 500mg/250ml 250 ML IV ONE (04:11)
--- NOTE | 2024-09-19 04:11 | RADIOLOGY REPORT ---
EXAM: CT CT HEAD INDICATION: ams TECHNIQUE: CT of the head without intravenous contrast. Coronal and sagittal reformatted images are s ubmitted. Radiation Dose : 1. Head: CT Dose: CTDI volume is 69.8 mGy. Dose-length product is 1452.5 mGy*cm The dose indicators for CT are the volume Computed Tomography (CT) Dose Index (CTDIvol) and the Dose Length Product (DLP), and are measured in units of mGy and mGy-cm, respectively. These indicators are not patient dose, but values generated from the CT scanner acquisition factors. The report includes radiation exposure data for exposures received during this examination. All CT scans at this medical facility are performed using dose modulation techniques as appropriate to a performed exam including the following: Automated exposure control was utilized; adjustment of the MA and/or KV according to patient size; and use of iterative reconstruction technique. COMPARISON: None FINDINGS: There is hyperdensity in the right occipital lobe compatible with acute intracranial hemorrhage measu ring 1.9 x 1.3 x 1.7 cm (volume 2.1 cc). There is no mass effect or midline shift. No hydrocephalus. The ventricles, sulci and cisterns are age appropriate. The moffett-white differentiation is intact. There is opacification of the left maxillary sinus. Mastoid air cells are clear. No depressed calvarial fracture. The surrounding soft tissues are unremarkable. IMPRESSION: 1. Right occipital lobe acute intracranial hemorrhage.
[2024-09-19] MEDS: labetalol 20mg/4ml (5mg/ml) syringe IV ONE (04:35)
--- NOTE | 2024-09-19 05:00 | RADIOLOGY REPORT ---
Exam: CT CT CHEST ABDOMEN PELVIS History: sob, abd pain, PATIENT ALLERGIC TO IODINE Comparison Study: None Technique: Multidetector CT of the chest, abdomen and pelvis was performed from lower neck to pubic s ymphysis without intravenous contrast. Coronal and sagittal multiplanar reformats were performed by burt casas technologist on a separate workstation. Radiation Dose Information: CT Dose: CTDI volume is 30.3 mGy. Dose-length product is 1771.7 mGy*cm Findings: Limited evaluation without intravenous contrast. Lower neck: Unremarkable thyroid. Lungs: Bilateral lower lobe atelectasis. 5 mm pulmonary nodule in the anterior right upper lobe. Pleura: No pneumothorax or pleural effusion. Central airways: Patent. Heart/Vascular Structures: Heart is enlarged. No pericardial effusion. Aortic valve replacement. Cor onary artery calcifications. No thoracic aortic aneurysm. Normal caliber main pulmonary artery. Lymph Nodes: No adenopathy Liver: The liver is normal in size. No focal lesions. Gallbladder and Biliary Tree: The gallbladder is unremarkable. No biliary ductal dilatation. Spleen: Unremarkable Pancreas: The pancreas is normal in appearance without focal lesions or peripancreatic enhancement. No pancreatic ductal dilatation. Adrenal Glands: Unremarkable Kidneys: Kidneys demonstrate no intrarenal calculi. There is asymmetric left perinephric fat strandin g and the left kidney is slightly larger than the right. Bladder: Unremarkable Bowel: The stomach is grossly normal in appearance. Small bowel is normal in caliber. Sigmoid diverti culosis without acute diverticulitis. The appendix is visualized and is normal. Peritoneal cavity: No pneumoperitoneum. No ascites. Lymphadenopathy: No mesenteric, retroperitoneal or periportal lymphadenopathy. Abdominal Wall and Mesentery: Unremarkable. Vasculature: The visualized abdominal aorta is normal in size and caliber. There are atherosclerotic calcifications in the aorta. Pelvic Organs: Unremarkable Musculoskeletal: No aggressive focal bony lesions, acute fractures or dislocation. IMPRESSION: 1. No acute traumatic injury in the chest. 2. 5 mm right upper lobe pulmonary nodule. Follow-up according to Fleischner society guidelines rosa mmended. 3. Slight enlargement of the left kidney with left perinephric fat stranding. No intrarenal stones. C orrelation with urinalysis is recommended. All CT scans at this medical facility are performed using dose modulation techniques as appropriate t o a performed exam including the following: Automated exposure control was utilized; adjustment of th e MA and/or KV according to patient size; and use of iterative reconstruction technique.
--- NOTE | 2024-09-19 06:08 | ELECTROCARDIOGRAPH REPORT ---
[facility] Test Date: 2024-09-19 Test Time: 02:06:36 Pat Name: SHY CARUSO Department: EMERGENCY ROOM [id number]: Gender: M Crook Operator: NICKY : 1950 Requested By: LUKAS GRANDE Order Number: [id number] Reading MD: Dr. Rocky Keane Measurements Intervals [place] Rate: 96 P: 96 VA: 187 QRS: 36 QRSD: 101 T: 88 QT: 403 QTc: 510 Interpretive Statements Sinus rhythm Left atrial enlargement Low voltage, extremity leads Nonspecific T abnormalities, lateral leads Prolonged QT interval Electronically Signed On 09-19-2024 6:32:[address] Rocky Keane Please click the below link to view image of tracing.
== END 2024-09-19 05:14 ==
LOC: ER 01:54
DX: I62.9 Nontraumatic intracranial hemorrhage, unspecified (principal); R41.82 Altered mental status, unspecified; Z88.0 Allergy status to penicillin; Z88.8 Allergy status to other drugs, medicaments and biological substances; Z20.822 Contact with and (suspected) exposure to COVID-19
CPT/HCPCS: 36415; 70450; 71045; 71250; 74176; 80053; 82948; 83605; 83690; 83880; 84145; 84484; 85025; 87040; 87077; 87186; 87811; 93005; 96365; 96367; 96375; 99291; 99292; J0456; J0696; J0780; J2470; J3490; J7030; Q9967